=== PATIENT | male | born 1940 | race African-American/Black ===

== ENCOUNTER 2024-10-25 14:57 | Emergency (ER) | payer MEDICARE, MEDICAID ==
[~2024-10-25] VITALS: Ht 170.2 cm; Wt 68.0 kg
[2024-10-25 15:02] VITALS: O2SAT 98
[2024-10-25] MEDS: CLINDAMYCIN HCL 150MG CAPSULE PO ONE (15:15)
[2024-10-25 17:28] LABS: BASOPHILS % 0.3 % (0.0-2.0); EOSINOPHILS % 0.1 % (0.0-5.0); HEMATOCRIT. 42.6 % (42.0-52.0); HEMOGLOBIN. 13.7 g/dL (14.0-18.0); MEAN CORPUSCULAR HEMOGLOBIN 29.8 pg (28.0-32.0); MEAN CORPUSCULAR HGB CONC 32.2 g/dL (31.0-37.0); MEAN CORPUSCULAR VOLUME 92.5 fL (80.0-94.0); MEAN PLATELET VOLUME 7.2 fl (7.4-10.4); MONOCYTES % 7.7 % (2.0-8.0); NEUTROPHILS % 76.9 % (40.0-76.0); PLATELET 169 x1000/uL (130-400); RED CELL DISTRIBUTION WIDTH 15.9 % (11.6-14.6); WHITE BLOOD COUNT 8.3 x1000/uL (4.5-11.0)
[2024-10-25 17:30] LABS: CHLORIDE 109 mEq/L (98-107); POTASSIUM 3.9 mEq/L (3.5-5.1); SODIUM 139 mEq/L (136-145)
[2024-10-25 17:31] LABS: CARBON DIOXIDE 26 mEq/L (21-32)
[2024-10-25 17:32] LABS: CALCIUM 9.7 mg/dL (8.7-10.4)
[2024-10-25 17:37] LABS: CREATININE 0.9 mg/dL (0.6-1.3); GLUCOSE 114 mg/dL (70-105); TROPONIN I HIGH SENSITIVITY 39 ng/L (3.0-53); UREA NITROGEN BLOOD 10 mg/dL (9-23)
[2024-10-25] MEDS ORDERED: CLIN-116 MT (19:10)
[2024-10-25 19:40] VITALS: BP 119/58; PULSE 79; RESP 14; TEMP 37.00296; O2SAT 97
== END 2024-10-25 19:52 | disposition home or self-care (01) ==
LOC: ER 14:57
DX: R55 Syncope and collapse (principal); R22.0 Localized swelling, mass and lump, head; K04.7 Periapical abscess without sinus; I51.9 Heart disease, unspecified; Z95.0 Presence of cardiac pacemaker
CPT/HCPCS: 36415; 71045; 80048; 84484; 85025; 93005; 99285